=== PATIENT | female | born 1955 | race Caucasian/White ===

== ENCOUNTER → 2017-03-07 | Outpatient (CLI) | payer OTHER ==
[~2017-03-07] MED LIST: ACET-1600 PO; BISO1TAB12 PO; BISO5TAB2 PO; DIPH25CA46 PO; IBUP800T PO
[2017-03-07 12:44] LABS: PATH.CAST-FLAG NOT PRESENT; SPERM-FLAG NOT PRESENT; SRC-FLAG NOT PRESENT; XTAL-FLAG NOT PRESENT; YLC-FLAG NOT PRESENT
[2017-03-07 13:18] LABS: BLOOD UREA NITROGEN 18 mg/dL (7-18)
[2017-03-07 13:23] LABS: ASPARTATE AMINO TRANSFERASE 20 U/L (15-37)
[2017-03-07 13:26] LABS: HIV 1&2 ANTIBODY SCREEN Nonreactive (Nonreactive); HIV-1 p24 ANTIGEN Nonreactive (Nonreactive)
== END | disposition home or self-care (01) ==
LOC: STAR 11:23
PROVIDERS: ATTEND Orthopaedic Surgery Adult Reconstructive Orthopaedic Surgery
DX: Z01.818 Encounter for other preprocedural examination (principal)
CPT/HCPCS: 36415; 80053; 81001; 85025; 86703; 87077; 87081; 87086; 87186; 87899; 93005; G0435

== ENCOUNTER 2017-03-13 06:25 | Inpatient (IN) | payer OTHER ==
[~2017-03-13] VITALS: Ht 167.6 cm; Wt 96.0 kg
[~2017-03-13 06:25] MED LIST changes: +EPINEPHRINE 1 MG/ML, 1ML ONE; +ROPIvacaine/PF 0.2%, 20 ML ONE; +TRANEXAMIC ACID 100 MG/ML, 10ML ONE
[2017-03-13] MEDS ORDERED: LACTATED RINGERS 1,000 ML IV SCH (07:16)
[2017-03-13 07:17] VITALS: BP 127/87
[2017-03-13] MEDS ORDERED: GABA600T2 PO (07:21)
[2017-03-13] MEDS ORDERED: ACET-1600 PO (07:21)
[2017-03-13] MEDS ORDERED: LIDOCAINE 1%, 2ML SQ PRN (07:30)
[2017-03-13] MEDS ORDERED: FENTANYL PF 100 MCG/2ML ONE ×2 (08:01→11:02)
[2017-03-13] MEDS ORDERED: MIDAZOLAM 1 MG/ML, 2ML ONE (08:01)
[2017-03-13] MEDS ORDERED: PROPOFOL 10 MG/ML, 20ML ONE (09:08)
[2017-03-13] MEDS ORDERED: DEXAMETHASONE 4 MG/ML, 5ML ONE (09:08)
[2017-03-13] MEDS ORDERED: LABETALOL 5MG/ML 40ML VIAL ONE (09:08)
[2017-03-13] MEDS ORDERED: ONDANSETRON 2MG/ML, 2ML ONE (09:08)
[2017-03-13] MEDS ORDERED: CEFAZOLIN 1,000 MG ONE (09:08)
[2017-03-13] MEDS ORDERED: TRANEXAMIC ACID 100 MG/ML, 10ML ONE ×2 (09:15)
[2017-03-13] MEDS ORDERED: FENTANYL PF 250 MCG/5ML ONE (09:23)
[2017-03-13] MEDS ORDERED: KETOROLAC 60 MG/2 ML INFIL ONE (09:58)
[2017-03-13] MEDS ORDERED: BISACODYL 10 MG SUPP PR PRN (10:30)
[2017-03-13] MEDS ORDERED: ALUMINUM/MAG/SIMETHICONE 30 ML UDC PO PRN (10:30)
[2017-03-13] MEDS ORDERED: MAGNESIUM HYDROXIDE 8%, 30ML UDC PO PRN (10:30)
[2017-03-13] MEDS ORDERED: ONDANSETRON 2MG/ML, 2ML IV PRN (10:30)
[2017-03-13] MEDS ORDERED: DIPHENHYDRAMINE 50 MG CAPSULE PO PRN (10:30)
[2017-03-13] MEDS ORDERED: LABETALOL 5MG/ML, 20ML IV PRN (10:30)
[2017-03-13] MEDS ORDERED: ONDANSETRON 2MG/ML, 2ML IVPush PRN (10:30)
[2017-03-13] MEDS ORDERED: HYDROmorphone 1 MG/ML, 1ML IV PRN (10:30)
[2017-03-13] MEDS ORDERED: SENNA/DOCUSATE TABLET PO PRN (10:30)
[2017-03-13] MEDS ORDERED: hydrALAzine 20 MG/ML, 1ML IV PRN (10:30)
[2017-03-13] MEDS ORDERED: OXYcodone 5 MG/5 ML ORAL.SOL UDC ONE ×2 (10:48→11:29)
[2017-03-13] MEDS: OXYcodone 5 MG/5 ML ORAL.SOL UDC PO PRN ×2 (10:50→11:30)
[2017-03-13] MEDS: FENTANYL PF 100 MCG/2ML IV PRN ×2 (11:03→11:28)
[2017-03-13 11:50] VITALS: BP 127/76
[2017-03-13] MEDS ORDERED: D5%-0.45NACL+KCL 20MEQ 1,000 ML IV SCH (12:00)
[2017-03-13] MEDS ORDERED: CEFAZOLIN PMX 2GM/50ML 50 ML IVPB SCH (13:00)
[2017-03-13] MEDS ORDERED: ONDANSETRON 4 MG TABLET PO PRN (13:00)
[2017-03-13] MEDS: OXYcodone IR 5MG TABLET PO PRN ×2 (14:56→19:28)
[2017-03-13 17:15] VITALS: BP 106/58
[2017-03-13] MEDS ORDERED: ASPIRIN 325 MG TABLET EC PO SCH (18:00)
[2017-03-13 20:05] VITALS: BP 117/64
[2017-03-13] MEDS ORDERED: DOCUSATE 100 MG CAPSULE PO SCH (21:00)
[2017-03-14] MEDS ORDERED: KETOROLAC 30 MG/1 ML IV SCH (13:00)
== END 2017-03-13 20:00 | disposition home or self-care (01) | DRG 470 ==
LOC: ORIP 06:25 → 4NOR 11:47
PROVIDERS: ADMIT Orthopaedic Surgery Adult Reconstructive Orthopaedic Surgery; ATTEND Orthopaedic Surgery Adult Reconstructive Orthopaedic Surgery
PROC: 0SRC0J9 Replacement of Right Knee Joint with Synthetic Substitute, Cemented, Open Approach (ICD-10-PCS; principal; 2017-03-13 08:30)
DX: M17.11 Unilateral primary osteoarthritis, right knee (principal); Z91.041 Radiographic dye allergy status
CPT/HCPCS: J0171; J0690; J1100; J1885; J2250; J2405; J2704; J2795; J3010; J7120

== ENCOUNTER → 2017-06-10 | Outpatient (CLI) | payer OTHER ==
[~2017-06-10] MED LIST changes: -EPINEPHRINE 1 MG/ML, 1ML ONE; +GABA600T2 PO; +IBUP-1223 PO; -IBUP800T PO; -ROPIvacaine/PF 0.2%, 20 ML ONE; -TRANEXAMIC ACID 100 MG/ML, 10ML ONE
== END | disposition home or self-care (01) ==
LOC: CFH 10:58
PROVIDERS: ATTEND Family Medicine
DX: Z12.31 Encounter for screening mammogram for malignant neoplasm of breast (principal); Z85.3 Personal history of malignant neoplasm of breast; Z92.3 Personal history of irradiation; Z90.12 Acquired absence of left breast and nipple
CPT/HCPCS: 77063; G0202

== ENCOUNTER → 2018-03-20 | Outpatient (CLI) | payer OTHER ==
[2018-03-20 08:17] LABS: BASOPHILS # (AUTO) 0.06 x10^3/uL (0-0.1); BASOPHILS % (AUTO) 1 % (0-1); EOSINOPHILS # (AUTO) 0.13 x10^3/uL (0-0.4); EOSINOPHILS % (AUTO) 2 % (1-7); LYMPHOCYTES # (AUTO) 1.83 x10^3/uL (1-3.4); LYMPHOCYTES % (AUTO) 31 % (22-44); MD NO; MEAN CORPUSCULAR HGB CONC 32.9 g/dL (32.4-35.8); MONOCYTES # (AUTO) 0.61 x10^3/uL (0.2-0.8); MONOCYTES % (AUTO) 10 % (2-9); NEUTROPHILS # (AUTO) 3.31 x10^3/uL (1.8-6.8); NEUTROPHILS % (AUTO) 56 % (42-75); PLATELET COUNT 342 x10^3/uL (130-400); RED BLOOD COUNT 4.66 x10^6/uL (3.82-5.3); RED CELL DISTRIBUTION WIDTH 12.7 % (9.6-15.2)
[2018-03-20 08:29] LABS: ALANINE AMINOTRANSFERASE 32 U/L (12-78); ALBUMIN 3.9 g/dL (3.4-5.0); ANION GAP 7 mmol/L (5-15); C-REACTIVE PROTEIN, QUANT 0.55 mg/dL (0.02-0.49); CALCIUM 8.7 mg/dL (8.5-10.1); CHLORIDE 105 mmol/L (98-107)
[2018-03-20 08:37] LABS: ALKALINE PHOSPHATASE 102 U/L (45-117); BILIRUBIN,TOTAL 0.4 mg/dL (0.2-1.0); CHOL/HDL RATIO 4.3; CHOLESTEROL, TOTAL 202 mg/dL (140-239); CREATININE 0.78 mg/dL (0.55-1.02); FREE T4 (FREE THYROXINE) 0.92 ng/dL (0.76-1.46); HDL CHOL % 23 % (28-40); HDL CHOLESTEROL (DIRECT) 47 mg/dL (40-60); LDL CHOLESTEROL,CALCULATED 132 mg/dL (54-169); LDL/HDL RATIO 2.8 (0.5-3.0); TOTAL PROTEIN 7.7 g/dL (6.4-8.2); TRIGLYCERIDES 113 mg/dL (50-200); VLDL CHOLESTEROL 23 mg/dL (0-25)
== END | disposition home or self-care (01) ==
LOC: LAB 08:05
PROVIDERS: ATTEND Family Medicine
DX: G47.01 Insomnia due to medical condition (principal); I10 Essential (primary) hypertension; E55.9 Vitamin D deficiency, unspecified; R79.82 Elevated C-reactive protein (CRP)
CPT/HCPCS: 36415; 80053; 80061; 82306; 84439; 84443; 84480; 85025; 86140

== ENCOUNTER → 2018-10-01 | Outpatient (CLI) | payer OTHER ==
[~2018-10-01] MED LIST changes: +TRAM50TA2 PO
[2018-10-01 10:27] LABS: BASOPHILS # (AUTO) 0.05 x10^3/uL (0-0.1); BASOPHILS % (AUTO) 1 % (0-1); EOSINOPHILS # (AUTO) 0.12 x10^3/uL (0-0.4); EOSINOPHILS % (AUTO) 2 % (1-7); LYMPHOCYTES # (AUTO) 2.48 x10^3/uL (1-3.4); LYMPHOCYTES % (AUTO) 41 % (22-44); MD NO; MEAN CORPUSCULAR HEMOGLOBIN 30.2 pg (27.0-34.8); MEAN CORPUSCULAR HGB CONC 32.8 g/dL (32.4-35.8); MEAN CORPUSCULAR VOLUME 92.1 fL (80-100); MONOCYTES # (AUTO) 0.72 x10^3/uL (0.2-0.8); MONOCYTES % (AUTO) 12 % (2-9); NEUTROPHILS # (AUTO) 2.74 x10^3/uL (1.8-6.8); NEUTROPHILS % (AUTO) 45 % (42-75); PLATELET COUNT 371 x10^3/uL (130-400); RED BLOOD COUNT 4.71 x10^6/uL (3.82-5.3); RED CELL DISTRIBUTION WIDTH 13.1 % (9.6-15.2)
[2018-10-01 10:32] LABS: MICROSCOPIC NOT IND
[2018-10-01 10:33] LABS: ANION GAP 7 mmol/L (5-15); CALCIUM 8.9 mg/dL (8.5-10.1); CHLORIDE 103 mmol/L (98-107)
[2018-10-01 10:43] LABS: CULTURE INDICATED? NO
== END | disposition home or self-care (01) ==
LOC: STAR 09:14
PROVIDERS: ATTEND Orthopaedic Surgery Adult Reconstructive Orthopaedic Surgery
DX: Z01.818 Encounter for other preprocedural examination (principal); M17.12 Unilateral primary osteoarthritis, left knee
CPT/HCPCS: 36415; 80048; 81003; 85025; 87081; 87806; 93005; G0475

== ENCOUNTER 2018-10-27 05:18 | Day surgery (SDC) | payer OTHER ==
[2018-10-01 09:46] VITALS: BP 144/94
[~2018-10-27] VITALS: Ht 167.6 cm; Wt 96.9 kg
[~2018-10-27 05:18] MED LIST changes: -GABA600T2 PO; +GABA600T7 PO
[2018-10-27] MEDS ORDERED: GABAPENTIN 300 MG CAPSULE PO ONE (06:00)
[2018-10-27] MEDS ORDERED: LIDOCAINE-MPF 1%, 2ML INFIL ONE (06:00)
[2018-10-27] MEDS ORDERED: ACETAMINOPHEN 500 MG TABLET PO ONE (06:00)
[2018-10-27] MEDS ORDERED: KETOROLAC 60 MG/2 ML ONE (06:19)
[2018-10-27] MEDS ORDERED: EPINEPHRINE 1 MG/ML, 1ML ONE (06:19)
[2018-10-27] MEDS ORDERED: TRANEXAMIC ACID 100 MG/ML, 10ML ONE ×2 (06:19)
[2018-10-27] MEDS ORDERED: ROPIvacaine/PF 0.5%, 30 ML ONE ×2 (06:19→07:26)
[2018-10-27] MEDS ORDERED: MIDAZOLAM 1 MG/ML, 2ML ONE (06:27)
[2018-10-27] MEDS ORDERED: FENTANYL PF 250 MCG/5ML ONE (06:27)
[2018-10-27] MEDS ORDERED: BUPIVACAINE LIPOSOME/PF 10ML INFIL ONE (06:28)
[2018-10-27] MEDS ORDERED: SCOPOLAMINE PATCH, 1.5MG PATCH.TD72 TD ONE ×2 (06:36→07:00)
[2018-10-27] MEDS: LACTATED RINGERS 1,000 ML IV SCH ×2 (06:41→10:56)
[2018-10-27] MEDS ORDERED: ROCURONIUM 10 MG/ML,10ML ONE (06:58)
[2018-10-27] MEDS ORDERED: ONDANSETRON 2MG/ML, 2ML ONE (06:58)
[2018-10-27] MEDS ORDERED: hydrALAzine 20 MG/ML, 1ML ONE (06:58)
[2018-10-27] MEDS ORDERED: SUCCINYLCHOLINE 20 MG/ML, 10ML ONE (06:58)
[2018-10-27] MEDS ORDERED: PROPOFOL 10 MG/ML, 20ML ONE (06:58)
[2018-10-27] MEDS ORDERED: CEFAZOLIN 1,000 MG ONE (06:58)
[2018-10-27] MEDS ORDERED: DEXAMETHASONE 4 MG/ML, 1ML ONE (06:58)
[2018-10-27] MEDS ORDERED: ROPIvacaine/PF 0.2%, 20 ML ONE (07:32)
[2018-10-27] MEDS ORDERED: ROPivacaine/PF 0.2%, 10 ML ONE (07:43)
[2018-10-27] MEDS ORDERED: D5%-0.45NACL+KCL 20MEQ 1,000 ML IV SCH (08:18)
[2018-10-27] MEDS ORDERED: ACETAMINOPHEN 650 MG/20.3 ML UDC PO PRN (08:30)
[2018-10-27] MEDS ORDERED: FENTANYL PF 100 MCG/2ML IV PRN (08:30)
[2018-10-27] MEDS ORDERED: DIAZEPAM 5 MG TABLET PO PRN (08:30)
[2018-10-27] MEDS ORDERED: ONDANSETRON ODT 8 MG PO PRN (08:30)
[2018-10-27] MEDS ORDERED: DIPHENHYDRAMINE 50 MG CAPSULE PO PRN (08:30)
[2018-10-27] MEDS ORDERED: HYDROcodone/APAP 5/325 TABLET PO PRN (08:30)
[2018-10-27] MEDS ORDERED: OXYcodone IR 5MG TABLET PO PRN (08:30)
[2018-10-27] MEDS ORDERED: ONDANSETRON 2MG/ML, 2ML IV PRN (08:30)
[2018-10-27] MEDS ORDERED: ALUMINUM/MAG/SIMETHICONE 30 ML UDC PO PRN (08:30)
[2018-10-27] MEDS ORDERED: LABETALOL 5MG/ML, 20ML IV PRN (08:30)
[2018-10-27] MEDS ORDERED: ONDANSETRON 4 MG TABLET PO PRN (08:30)
[2018-10-27] MEDS ORDERED: CEFAZOLIN PMX 2GM/50ML 50 ML IVPB SCH ×2 (08:30→15:00)
[2018-10-27] MEDS ORDERED: MAGNESIUM HYDROXIDE 8%, 30ML UDC PO PRN (08:30)
[2018-10-27] MEDS ORDERED: morphine SULFATE 10 MG/ML, 1ML IV PRN (08:30)
[2018-10-27] MEDS ORDERED: SENNA/DOCUSATE TABLET PO PRN (08:30)
[2018-10-27] MEDS ORDERED: OXYcodone 5 MG/5 ML ORAL.SOL UDC PO PRN (08:30)
[2018-10-27] MEDS ORDERED: PROMETHAZINE 12.5 MG SUPP PR PRN (08:30)
[2018-10-27] MEDS ORDERED: HYDROmorphone 1 MG/ML, 1ML IV PRN (08:30)
[2018-10-27] MEDS ORDERED: hydrALAzine 20 MG/ML, 1ML IV PRN (08:30)
[2018-10-27] MEDS ORDERED: BISACODYL 10 MG SUPP PR PRN (08:30)
[2018-10-27] MEDS ORDERED: OXYcodone 5 MG/5 ML ORAL.SOL UDC ONE (08:58)
[2018-10-27] MEDS ORDERED: DOCUSATE 100 MG CAPSULE PO SCH (09:00)
[2018-10-27] MEDS ORDERED: BISOPROLOL 5 MG HOMEMEDPO SCH (09:00)
[2018-10-27 09:30] VITALS: BP 106/62
[2018-10-27 12:50] VITALS: BP 92/57
[2018-10-27] MEDS ORDERED: ASPI81TA45 PO (15:28)
[2018-10-27] MEDS ORDERED: OXYC5CAP2 PO (15:28)
[2018-10-27 15:50] VITALS: BP 100/56
[2018-10-27] MEDS ORDERED: ASPIRIN 81 MG TABLET EC PO SCH (18:00)
[2018-10-28] MEDS ORDERED: KETOROLAC 30 MG/1 ML IV SCH (08:30)
== END 2018-10-27 16:45 | disposition home or self-care (01) ==
LOC: OUT 05:18 → 4NOR 09:28 → OUT 16:45
PROVIDERS: ATTEND Orthopaedic Surgery Adult Reconstructive Orthopaedic Surgery
DX: M17.12 Unilateral primary osteoarthritis, left knee (principal)
CPT/HCPCS: 27447; 64447; 97110; 97162; C1713; C1776; J0171; J0330; J0360; J0690; J1100; J1885; J2250; J2405; J2704; J2795; J3010; J7120; G0378

== ENCOUNTER → 2020-01-01 | Outpatient (CLI) | payer OTHER ==
[~2020-01-01] MED LIST changes: +ASPI81TA45 PO; -BISO1TAB12 PO; +BISO1TAB92 PO; -BISO5TAB2 PO; +BISO5TAB8 PO; +OXYC5CAP2 PO
[2020-01-01 08:26] LABS: BASOPHILS # (AUTO) 0.03 x10^3/uL (0-0.1); BASOPHILS % (AUTO) 1 % (0-1); EOSINOPHILS % (AUTO) 2 % (1-7); LYMPHOCYTES # (AUTO) 1.81 x10^3/uL (1-3.4); LYMPHOCYTES % (AUTO) 30 % (22-44); MD NO; MEAN CORPUSCULAR HEMOGLOBIN 30.5 pg (27.0-34.8); MEAN CORPUSCULAR HGB CONC 32.9 g/dL (32.4-35.8); MEAN CORPUSCULAR VOLUME 92.8 fL (80-100); MEAN PLATELET VOLUME 7.9 fL (7.4-10.4); MONOCYTES # (AUTO) 0.72 x10^3/uL (0.2-0.8); MONOCYTES % (AUTO) 12 % (2-9); NEUTROPHILS # (AUTO) 3.34 x10^3/uL (1.8-6.8); NEUTROPHILS % (AUTO) 56 % (42-75); PLATELET COUNT 303 x10^3/uL (130-400); RED BLOOD COUNT 4.39 x10^6/uL (3.82-5.3); RED CELL DISTRIBUTION WIDTH 13.5 % (9.6-15.2)
[2020-01-01 08:36] LABS: ALBUMIN 3.6 g/dL (3.4-5.0); ANION GAP 7 mmol/L (5-15); CALCIUM 9.1 mg/dL (8.5-10.1); CHLORIDE 106 mmol/L (98-107)
[2020-01-01 08:44] LABS: ALANINE AMINOTRANSFERASE 26 U/L (12-78); ALKALINE PHOSPHATASE 84 U/L (45-117); BILIRUBIN,TOTAL 0.7 mg/dL (0.2-1.0); C-REACTIVE PROTEIN, QUANT 0.99 mg/dL (0.02-0.49); CHOL/HDL RATIO 3.2; CHOLESTEROL, TOTAL 191 mg/dL (140-239); HDL CHOL % 31 % (28-40); HDL CHOLESTEROL (DIRECT) 60 mg/dL (40-60); LDL CHOLESTEROL,CALCULATED 103 mg/dL (54-169); LDL/HDL RATIO 1.7 (0.5-3.0); TOTAL PROTEIN 7.4 g/dL (6.4-8.2); TRIGLYCERIDES 140 mg/dL (50-200); VLDL CHOLESTEROL 28 mg/dL (0-25)
== END | disposition home or self-care (01) ==
LOC: LAB 08:10
PROVIDERS: ATTEND Family Medicine
DX: E55.9 Vitamin D deficiency, unspecified (principal); R79.82 Elevated C-reactive protein (CRP); I10 Essential (primary) hypertension
CPT/HCPCS: 36415; 80053; 80061; 82306; 85025; 86140

== ENCOUNTER → 2020-08-05 | Outpatient (CLI) | payer OTHER | END | disposition home or self-care (01) | LOC: STAR 13:34 | PROVIDERS: ATTEND Orthopaedic Surgery | DX: Z01.818 Encounter for other preprocedural examination (principal); M75.21 Bicipital tendinitis, right shoulder; M75.121 Complete rotator cuff tear or rupture of right shoulder, not specified as traumatic; M75.41 Impingement syndrome of right shoulder; Z20.828 Contact with and (suspected) exposure to other viral communicable diseases | CPT/HCPCS: 36415; 87635; 93005 ==

== ENCOUNTER 2020-08-11 05:15 | Day surgery (SDC) | payer OTHER ==
[~2020-08-11] VITALS: Ht 167.6 cm; Wt 99.9 kg
[2020-08-11] MEDS ORDERED: LACTATED RINGERS 1,000 ML IV SCH (06:00)
[2020-08-11 06:04] VITALS: BP 158/88
[2020-08-11] MEDS ORDERED: CHLORHEXIDINE 15 ML UDC MM ONE (06:30)
[2020-08-11] MEDS ORDERED: CLINDAMYCIN 150 MG/ML, 6ML ONE (06:36)
[2020-08-11] MEDS ORDERED: EPINEPHRINE TOPICAL SOLN 1 MG/ML, 30ML ONE (06:36)
[2020-08-11] MEDS ORDERED: MIDAZOLAM 1 MG/ML, 2ML ONE (06:45)
[2020-08-11] MEDS ORDERED: FENTANYL PF 100 MCG/2ML ONE (06:45)
[2020-08-11] MEDS ORDERED: PROPOFOL 10 MG/ML, 20ML ONE ×2 (06:58→08:24)
[2020-08-11] MEDS ORDERED: EPHEDRINE 50 MG/ML, 1ML ONE (06:58)
[2020-08-11] MEDS ORDERED: PHENYLEPHRINE 10 MG/ML ONE (06:58)
[2020-08-11] MEDS ORDERED: LABETALOL 5MG/ML, 20ML IV PRN (07:30)
[2020-08-11] MEDS ORDERED: OXYcodone 5 MG/5 ML ORAL.SOL UDC PO PRN (07:30)
[2020-08-11] MEDS ORDERED: FENTANYL PF 100 MCG/2ML IV PRN (07:30)
[2020-08-11] MEDS ORDERED: hydrALAzine 20 MG/ML, 1ML IV PRN (07:30)
[2020-08-11] MEDS ORDERED: PROMETHAZINE 25 MG/ML, 1ML IVPush PRN (07:30)
[2020-08-11] MEDS ORDERED: ALBUTEROL SULFATE 2.5 MG/3 ML NPPB PRN (07:30)
[2020-08-11] MEDS ORDERED: LORazepam 2 MG/ML, 1ML IVPush PRN (07:30)
[2020-08-11] MEDS ORDERED: HYDROmorphone 1 MG/ML, 1ML INJ IVPush PRN (07:30)
[2020-08-11] MEDS ORDERED: ACETAMINOPHEN 325 MG TABLET PO PRN (07:30)
[2020-08-11] MEDS ORDERED: MEPERIDINE/PF 25MG/0.5ML IVPush PRN (07:30)
[2020-08-11] MEDS ORDERED: BUPIVACAINE/PF-EPI 0.25% 1:200K INFIL ONE (07:35)
[2020-08-11] MEDS ORDERED: ROCURONIUM 10MG/ML,5ML ONE (08:24)
[2020-08-11] MEDS ORDERED: CEFAZOLIN 1,000 MG ONE (08:24)
[2020-08-11] MEDS ORDERED: ONDANSETRON 2MG/ML, 2ML ONE (08:24)
[2020-08-11] MEDS ORDERED: LIDOCAINE-MPF 2% ,5ML ONE (08:24)
[2020-08-11] MEDS ORDERED: NEOSTIGMINE 1 MG/ML, 10ML ONE (08:24)
[2020-08-11] MEDS ORDERED: GLYCOPYRROLATE 0.2MG/1ML, 5ML ONE (08:24)
[2020-08-11] MEDS ORDERED: DEXAMETHASONE 4 MG/ML, 1ML ONE (08:24)
[2020-08-11] MEDS ORDERED: BUPIVACAINE/PF 0.5% ONE (08:24)
== END 2020-08-11 11:15 | disposition home or self-care (01) ==
LOC: OUT 05:15
PROVIDERS: ATTEND Orthopaedic Surgery
DX: S43.431A Superior glenoid labrum lesion of right shoulder, initial encounter (principal); S46.011A Strain of muscle(s) and tendon(s) of the rotator cuff of right shoulder, initial encounter; M94.211 Chondromalacia, right shoulder; M75.21 Bicipital tendinitis, right shoulder; M75.01 Adhesive capsulitis of right shoulder; M75.41 Impingement syndrome of right shoulder; M75.51 Bursitis of right shoulder; M25.711 Osteophyte, right shoulder; G89.18 Other acute postprocedural pain; I10 Essential (primary) hypertension; Z79.1 Long term (current) use of non-steroidal anti-inflammatories (NSAID); Z79.891 Long term (current) use of opiate analgesic; Z79.899 Other long term (current) drug therapy; Z85.3 Personal history of malignant neoplasm of breast; Z91.048 Other nonmedicinal substance allergy status; Z90.49 Acquired absence of other specified parts of digestive tract; Z98.890 Other specified postprocedural states; W01.0XXA Fall on same level from slipping, tripping and stumbling without subsequent striking against object, initial encounter; Y93.89 Activity, other specified; Y92.89 Other specified places as the place of occurrence of the external cause; Y99.8 Other external cause status
CPT/HCPCS: 23430; 29823; 29826; 64415; C1713; J0690; J1100; J2250; J2370; J2405; J2704; J2710; J3010; J7120

== ENCOUNTER 2021-01-28 09:12 | Outpatient (CLI) | payer OTHER ==
[2021-01-28 09:48] LABS: ALANINE AMINOTRANSFERASE 37 U/L (12-78); ALBUMIN 3.9 g/dL (3.4-5.0); ANION GAP 5 mmol/L (5-15); CHLORIDE 105 mmol/L (98-107); CREATININE 0.61 mg/dL (0.55-1.02)
[2021-01-28 09:51] LABS: ALKALINE PHOSPHATASE 99 U/L (45-117); BILIRUBIN,TOTAL 0.4 mg/dL (0.2-1.0); CHOL/HDL RATIO 4.1; CHOLESTEROL, TOTAL 202 mg/dL (140-239); HDL CHOL % 24 % (28-40); HDL CHOLESTEROL (DIRECT) 49 mg/dL (40-60); LDL CHOLESTEROL,CALCULATED 133 mg/dL (54-169); LDL/HDL RATIO 2.7 (0.5-3.0); TOTAL PROTEIN 7.6 g/dL (6.4-8.2); TRIGLYCERIDES 100 mg/dL (50-200); VLDL CHOLESTEROL 20 mg/dL (0-25)
== END 2021-01-28 23:59 | disposition home or self-care (01) ==
LOC: LAB 09:12
PROVIDERS: ATTEND Internal Medicine
DX: I10 Essential (primary) hypertension (principal); E55.9 Vitamin D deficiency, unspecified; Z85.3 Personal history of malignant neoplasm of breast
CPT/HCPCS: 36415; 80053; 80061; 82306

== ENCOUNTER → 2021-04-05 | Outpatient (CLI) | payer OTHER | END | disposition home or self-care (01) | LOC: CFH 09:51 | PROVIDERS: ATTEND Internal Medicine | DX: Z12.31 Encounter for screening mammogram for malignant neoplasm of breast (principal) | CPT/HCPCS: 77063; 77067 ==